=== PATIENT | female | born 1975 | race Caucasian/White ===

== ENCOUNTER 2018-02-14 09:50 | Emergency (ER) | payer MEDICAID ==
[~2018-02-14] VITALS: Ht 162.6 cm; Wt 82.7 kg
[~2018-02-14 09:50] MED LIST: BCP
[2018-02-14] MEDS ORDERED: IBUPROFEN 800 MG TABLET PO ONE (11:45)
[2018-02-14 12:46] VITALS: BP 126/80
== END 2018-02-14 12:47 | disposition home or self-care (01) ==
LOC: EMS 09:50
DX: S60.222A Contusion of left hand, initial encounter (principal); R03.0 Elevated blood-pressure reading, without diagnosis of hypertension; X50.1XXA Overexertion from prolonged static or awkward postures, initial encounter; Y93.89 Activity, other specified; Y92.89 Other specified places as the place of occurrence of the external cause; Y99.8 Other external cause status
CPT/HCPCS: 99284

== ENCOUNTER 2019-07-12 18:15 | Emergency (ER) | payer MEDICAID ==
[~2019-07-12] VITALS: Ht 162.6 cm; Wt 82.7 kg
[2019-07-12] MEDS ORDERED: KETOROLAC TROMETHAMINE 30 MG/ML VIAL IM ONE (19:00)
[2019-07-12] MEDS ORDERED: IBUPROFEN 800 MG TABLET PO ONE (20:00)
[2019-07-12 20:24] VITALS: BP 140/81
== END 2019-07-12 20:28 | disposition home or self-care (01) ==
LOC: EMS 18:17
DX: L03.012 Cellulitis of left finger (principal)

== ENCOUNTER 2022-06-08 12:58 | Emergency (ER) | payer SELFPAY ==
[~2022-06-08] VITALS: Ht 165.1 cm; Wt 77.3 kg
[2022-06-08] MEDS ORDERED: IBUP-45 PO (13:05)
[2022-06-08] MEDS ORDERED: ACETAMINOPHEN 500 MG TABLET PO ONE (14:15)
[2022-06-08] MEDS ORDERED: KETOROLAC TROMETHAMINE 30 MG/ML VIAL IM ONE (14:15)
[2022-06-08 15:38] VITALS: BP 125/69
== END 2022-06-08 15:46 | disposition home or self-care (01) ==
LOC: EMS 13:03
DX: S09.90XA Unspecified injury of head, initial encounter (principal); M25.552 Pain in left hip; M25.512 Pain in left shoulder; M25.562 Pain in left knee; M25.561 Pain in right knee; W19.XXXA Unspecified fall, initial encounter; Y93.89 Activity, other specified; Y92.89 Other specified places as the place of occurrence of the external cause; Y99.8 Other external cause status
CPT/HCPCS: 99285; 70450; 73030; 73503; 73562; 96372; J1885